=== PATIENT | female | born 2005 | race Hispanic/Latino ===

== ENCOUNTER 2025-07-22 09:28 | Emergency (ER) | payer SELFPAY ==
[~2025-07-22] VITALS: Ht 157.5 cm; Wt 73.9 kg
[2025-07-22 10:48] LABS: RAPID GROUP A STREP negative (NEGATIVE)
[2025-07-22 10:53] LABS: SARS-CoV-2, RNA, NAAT NEGATIVE SARS CoV-2 (NEGATIVE)
[2025-07-22] MEDS ORDERED: OSEL75 PO (10:55)
--- NOTE | 2025-07-22 10:55 | ERN ---
General Chief Complaint: Cough Stated Complaint: COUGH Time Seen by MD: 09:31 History of Present Illness Initial Comments 19-year-old female came in for cough and fever. Allergies: Coded Allergies: No Known Drug Allergies (Unverified Allergy, Unknown, 07/22/25) Past Medical History Past Medical History: No Pertinent History Past Surgical History: None ROS Dictation Cough Physical Exam General Appearance: (+) no apparent distress, (+) apparent distress Orientation: (+) alert, (+) oriented x 3 Neck: (+) normal inspection, (+) supple Respiratory: (+) chest non-tender, (+) lungs clear Heart: (+) regular, (+) no gallop Gastrointestinal: (+) soft, (+) non-tender Results Laboratory and Microbiology Lab and Micro Result Laboratory Tests Test 07/22/25 09:50 SARS-CoV-2, RNA, NAAT NEGATIVE SARS CoV-2 Group A Streptococcus Rapid negative (NEGATIVE) MDM MDM: Differential diagnosis: Rationale: Tests considered and ordered secondary to shared decision making include: Previous outside records reviewed: Old ER visits. Risk of complication and/or morbidity or mortality of patient management: None Medications-Per medication reconciliation Need for hospitalization: Patient does not meet criteria for hospitalization. Need for emergency major/minor surgery: No There are no social concerns with this patient. Prescription drug management Prescriptions will include symptomatic care Patient's prior external medical records from other ER visits were reviewed by me as indicated. Prior testing and results from previous visits were reviewed. Prior tests were taken into account with medical decision making and resource utilization, independent historian/historians were used to obtain complete medical history. I independently interpreted the test that were performed, results were reviewed by me and considered findings on radiology if ordered. Medical management and examination interpretation discussions were had by me with other qualified healthcare professionals as indicated for the patient's care. ED Course Orders Procedure Category Date Status Time Covid Rna Naat LAB 07/22/25 In Process 09:32 Influenza Type A & B, LAB 07/22/25 In Process Rapid 09:32 Rapid (Group A Strep) LAB 07/22/25 In Process 09:32 Vital Signs Date Time Temp Pulse Resp B/P (MAP) Pulse Ox O2 Delivery O2 Flow Rate FiO2 07/22/25 09:29 99.9 113 20 128/74 99 Room Air DX & DISP Disposition: Discharge Departure Impression: Primary Impression: URI (upper respiratory infection) Condition: Stable Scripts Oseltamivir Phosphate (Tamiflu) 75 Mg Cap 75 MG PO BID for 5 Days, #10 CAP Prov: MELO SANCHEZ MD 07/22/25 Referrals: MICHAEL JOHNSON (PCP) MELO SANCHEZ MD Jul 22, 2025 10:55
[2025-07-22] MEDS ORDERED: AMOX1TAB16 PO (11:00)
[2025-07-22 11:22] LABS: INFLUENZA TYPE B Negative For Type B (NEGATIVE)
[2025-07-22 11:23] LABS: INFLUENZA TYPE A Positive For Type A (NEGATIVE)
[2025-07-22 11:30] VITALS: BP 127/87; PULSE 99; RESP 18; TEMP 99; O2SAT 97
== END 2025-07-22 11:36 | disposition home or self-care (01) ==
LOC: EDH 09:28
DX: J06.9 Acute upper respiratory infection, unspecified (principal); Z20.822 Contact with and (suspected) exposure to COVID-19
CPT/HCPCS: 87635; 87804; 87880; 99283